=== PATIENT | female | born 1980 | race Caucasian/White ===

== ENCOUNTER 2021-10-18 17:35 | Inpatient (IN) | payer SELFPAY ==
[~2021-10-18] VITALS: Ht 161 cm; Wt 102.0 kg
[2021-10-18 17:41] VITALS: BP 255/183
[2021-10-18] MEDS ORDERED: cloNIDine 0.1 MG (CATAPRES) TAB ONE (17:50)
[2021-10-18] MEDS ORDERED: cloNIDine 0.2 MG (CATAPRES) TAB ONE (17:51)
[2021-10-18] MEDS ORDERED: cloNIDine 0.1 MG (CATAPRES) TAB PO ONE (18:00)
[2021-10-18] MEDS ORDERED: fentaNYL INJ 100 MCG/2 ML AMP IVP ONE (18:00)
[2021-10-18 18:06] LABS: BASOPHILS # (AUTO) 0.1 10^3/uL (0.0-0.1); BASOPHILS % (AUTO) 1 % (0-10); EOSINOPHILS # (AUTO) 0.2 10^3/uL (0.0-0.3); EOSINOPHILS % (AUTO) 1 % (0-10); HEMATOCRIT 43 % (35-52); HEMOGLOBIN 14.8 g/dL (11.5-16.0); LYMPHOCYTES # (AUTO) 2.5 10^3/uL (1.0-4.0); LYMPHOCYTES % (AUTO) 14 % (12-44); MEAN CORPUSCULAR HEMOGLOBIN 28 pg (25-34); MEAN CORPUSCULAR HGB CONC 34 g/dL (32-36); MEAN CORPUSCULAR VOLUME 83 fL (80-99); MEAN PLATELET VOLUME 9.6 fL (9.0-12.2); MONOCYTES # (AUTO) 0.9 10^3/uL (0.0-1.0); MONOCYTES % (AUTO) 5 % (0-12); NEUTROPHILS # (AUTO) 15.1 10^3/uL (1.8-7.8); NEUTROPHILS % (AUTO) 80 % (42-75); PLATELET COUNT 388 10^3/uL (130-400); WHITE BLOOD COUNT 18.9 10^3/uL (4.3-11.0)
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
[2021-10-18 18:19] LABS: POTASSIUM 2.6 MMOL/L (3.6-5.0)
[2021-10-18 18:20] LABS: CALCIUM 9.3 MG/DL (8.5-10.1)
[2021-10-18 18:21] LABS: EOSINOPHILS % (MANUAL) 3 %; INR 0.9 (0.8-1.4); LYMPHOCYTES % (MANUAL) 12 %; MONOCYTES % (MANUAL) 2 %; NEUTROPHILS % (MANUAL) 83 %; PROTHROMBIN TIME PATIENT 12.8 SEC (12.2-14.7); RBC MORPH NORMAL; TOTAL PROTEIN 8.7 GM/DL (6.4-8.2)
[2021-10-18 18:23] LABS: BILIRUBIN,TOTAL 0.3 MG/DL (0.1-1.0)
--- NOTE | 2021-10-18 18:23 | Diagnostic Imaging Report ---
INDICATION: Hypertension. COMPARISON: None. FINDINGS: Single view of the chest demonstrates slight cardiac enlargement. Lungs are clear. There is no pneumothorax. Osseous structures are normal. IMPRESSION: No acute cardiopulmonary findings. Dictated by: Dictated on workstation # [id number]
[2021-10-18 18:25] LABS: CREATININE SERUM 2.98 MG/DL (0.60-1.30)
[2021-10-18 18:27] LABS: MAGNESIUM 2.6 MG/DL (1.6-2.4)
[2021-10-18] MEDS ORDERED: NS IV 1000 ML 1,000 ML IV SCH (18:45)
[2021-10-18] MEDS ORDERED: KCL 10 MEQ TAB (MICRO K) PO ONE (18:45)
[2021-10-18] MEDS ORDERED: POTASSIUM CL 10MEQ/50ML IVPB 50 ML IV ONE (18:45)
--- NOTE | 2021-10-18 18:48 | Diagnostic Imaging Report ---
PROCEDURE: CT head without contrast. TECHNIQUE: Multiple contiguous axial images were obtained through the brain without the use of intravenous contrast. Auto Exposure Controls were utilized during the CT exam to meet ALARA standards for radiation dose reduction. INDICATION: Headache and high blood pressure. COMPARISON: No prior studies are available for comparison. FINDINGS: Ventricles and sulci are within normal limits. There are patchy areas of hypoattenuation in the periventricular white matter consistent with changes of chronic microvascular ischemia. 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 There is also probable old infarct in the right michel radiata. No sulcal effacement or midline shift is identified. No acute intra-axial or extra-axial hemorrhage is detected. Cisterns are patent. Visualized paranasal sinuses are clear. IMPRESSION: Chronic changes. No acute intracranial process is detected. Dictated by: Dictated on workstation # [id number]
[2021-10-18] MEDS: niCARdipine IV 50 MG in NS (IVPB) 230 ML IV SCH ×3 (19:01→23:20)
[2021-10-18] MEDS ORDERED: meTOprolol SUCCINATE 100 MG (TOPROL XL) TAB PO ONE (20:00)
[2021-10-18 21:06] LABS: BILIRUBIN,URINE NEGATIVE (NEGATIVE); CLARITY,URINE SL CLOUDY; COLOR,URINE YELLOW; GLUCOSE, URINE (UA) TRACE (NEGATIVE); KETONES,URINE NEGATIVE (NEGATIVE); LEUKOCYTE ESTERASE ,URINE NEGATIVE (NEGATIVE); NITRITE,URINE NEGATIVE (NEGATIVE); PROTEIN,URINE 3+ (NEGATIVE)
[2021-10-18 21:15] LABS: AMORPHOUS SEDIMENT,UR RARE AMOR URATES /LPF; BACTERIA,URINE MODERATE /HPF; RBC,URINE 0-2 /HPF
[2021-10-18 21:18] LABS: AMPHETAMINE SCREEN, URINE POSITIVE (NEGATIVE); BARBITURATE SCREEN URINE NEGATIVE (NEGATIVE); BENZODIAZEPINES SCREEN URINE NEGATIVE (NEGATIVE); CANNABINOID SCREEN, URINE NEGATIVE (NEGATIVE); COCAINE SCREEN URINE NEGATIVE (NEGATIVE); METHADONE STAT NEGATIVE (NEGATIVE); METHAMPHETAMINE SCREEN URINE S POSITIVE (NEGATIVE); OPIATE SCREEN URINE NEGATIVE (NEGATIVE); OXYCODONE STAT NEGATIVE (NEGATIVE); PROPOXYPHENE STAT NEGATIVE (NEGATIVE); TRICYCLIC ANTIDEPRESSANTS SCRE NEGATIVE (NEGATIVE)
--- NOTE | 2021-10-18 21:47 | Tele-ICU Consult ---
History of Present Illness History of Present Illness Date Seen by Provider: Oct 18, 2021 Time Seen by Provider: 19:42 Date of Admission This virtual visit was conducted using real time audio/video. Thank you for asking us to see this patient for hypertensive urgency w BP 22/153, headache and ur tox screen positive for amphetamines Recent events: ran out of clonidine 6 days ago. PMH: renal insuffic., htn SH: smoking history Y FH: Non-contributory. ROS: as in HPI PE: Obese. VSS except BP 201/99. HEENT: No obvious masses, adenopathy or JVD. Chest: clear to auscultation. CV: RRR S1 S2 No murmur or added sounds. Abd: Non-tender. Bowel sounds Y. : Unremarkable. Ardon N. IMPLEMENTATION SERVICES ANALYST/psychiatric: Grossly intact. No obvious focal findings. Extremities: No edema. Capillary refill < 3 seconds. Skin: unremarkable. Results: Elevated WCC 18.9, BUN 26, Creat 2.98, Lact 1.38, Trop 0.114, BG 157. Decreased . CXR: unremarkable. Available chart/ vitals / labs / images reviewed. Video assessment done using teleICU camera, rest of exam as per RN. A/P: Hyperetensive urgency. Critical Care: critically ill patient. Cont. Cardene. Give metoprolol and Clonidine. Discussed with RN Haydee. Asked RN to reach out to eICU if any questions or concerns later. Time spent with patient/coordination of care with other health professionals (mins): Allergies and Home Medications Allergies Coded Allergies: Sulfa (Sulfonamide Antibiotics) (Verified Allergy, Unknown, 10/18/21) ampicillin (Verified Allergy, Unknown, 10/18/21) latex (Verified Allergy, Unknown, 10/18/21) topiramate (Verified Allergy, Unknown, 10/18/21) Past Medical/Social/Family Hx Patient Social History Tobacco Use?: Yes Tobacco type used: Cigarettes Smoking Status: Current Everyday Smoker Use of E-Cig and/or Vaping dev: No Substance type: Methamphetamine, Marijuana past user Alcohol Use?: No Pt stated abuse/neglect: No Immunizations Up To Date Influenza Vaccine Up-to-Date: No; Not Current Tetanus Booster (TDap): Unknown Current Status Advance Directives: No Primary Language: [place] Preferred Spoken Language: [place] Review of Systems Constitutional: see HPI EENTM: see HPI Respiratory: see HPI Cardiovascular: see HPI Genitourinary: see HPI Musculoskeletal: see HPI Skin: see HPI Psychiatric/Neurological: See HPI (See free text) Focused Exam Lactate Level 10/18/21 19:05: Lactic Acid Level 1.38 Height, Weight, BMI Height: '" Weight: lbs. oz. kg; 36.00 BMI Method: Lactic Acid Level Laboratory Tests Test 10/18/21 19:05 Lactic Acid Level 1.38 MMOL/L (0.50-2.00) Exam Exam Patient acknowledged, consented, and participated in this virtual visit which was conducted using real time audio/video Vital Signs Date Time Temp Pulse Resp B/P (MAP) Pulse Ox O2 Delivery O2 Flow Rate FiO2 10/18/21 17:41 36.8 105 22 255/183 (207) 96 Room Air Height & Weight Height: '" Weight: lbs. oz. kg; 36.00 BMI Method: General Appearance: No Apparent Distress, WD/WN, Other (Alert and oriented GCS 15. She is hypertensive at 255/176.) HEENT: PERRL/EOMI, TMs Normal Neck: Full Range of Motion, Normal Inspection Respiratory: No Accessory Muscle Use, No Respiratory Distress Cardiovascular: Regular Rate, Rhythm, Normal Peripheral Pulses Capillary Refill: Less Than 3 Seconds Extremity: Normal Capillary Refill, Normal Inspection Neurologic/Psychiatric: Alert, Oriented x3 Skin: Normal Color, Warm/Dry Results Lab Laboratory Tests 10/18/21 17:56 Assessment/Plan Assessment/Plan See free text Critical Care: Critically Ill Patient LOIS MAYA MD Oct 18, 2021 21:46
[2021-10-18] MEDS ORDERED: dilTIAZem DRIP PRE-MIX 125 ML IV SCH (23:00)
[2021-10-18] MEDS: LACTATED RINGERS 1,000 ML IV SCH (23:18)
[2021-10-19] MEDS ORDERED: NS (IVPB) 250 ML ONE (02:08)
[2021-10-19] MEDS ORDERED: niCARdipine IV FOR DRIP 50 MG KIT ONE (02:08)
[2021-10-19] MEDS: niCARdipine IV 50 MG in NS (IVPB) 230 ML IV SCH ×2 (02:13→19:22)
[2021-10-19 05:31] LABS: BASOPHILS # (AUTO) 0.1 10^3/uL (0.0-0.1); BASOPHILS % (AUTO) 1 % (0-10); EOSINOPHILS # (AUTO) 0.4 10^3/uL (0.0-0.3); EOSINOPHILS % (AUTO) 3 % (0-10); HEMATOCRIT 36 % (35-52); LYMPHOCYTES # (AUTO) 3.6 10^3/uL (1.0-4.0); LYMPHOCYTES % (AUTO) 24 % (12-44); MEAN CORPUSCULAR HEMOGLOBIN 28 pg (25-34); MEAN CORPUSCULAR HGB CONC 34 g/dL (32-36); MEAN CORPUSCULAR VOLUME 85 fL (80-99); MEAN PLATELET VOLUME 9.8 fL (9.0-12.2); MONOCYTES % (AUTO) 7 % (0-12); NEUTROPHILS # (AUTO) 9.8 10^3/uL (1.8-7.8); NEUTROPHILS % (AUTO) 66 % (42-75); PLATELET COUNT 298 10^3/uL (130-400); WHITE BLOOD COUNT 14.9 10^3/uL (4.3-11.0)
[2021-10-19 05:50] LABS: ALBUMIN 3.2 GM/DL (3.2-4.5); POTASSIUM 2.6 MMOL/L (3.6-5.0)
[2021-10-19 05:51] LABS: CALCIUM 8.5 MG/DL (8.5-10.1)
[2021-10-19 05:53] LABS: TOTAL PROTEIN 6.6 GM/DL (6.4-8.2)
[2021-10-19 05:54] LABS: BILIRUBIN,TOTAL 0.2 MG/DL (0.1-1.0)
[2021-10-19 05:56] LABS: CREATININE SERUM 2.78 MG/DL (0.60-1.30); PHOSPHORUS 3.4 MG/DL (2.3-4.7)
[2021-10-19 05:59] LABS: MAGNESIUM 2.2 MG/DL (1.6-2.4)
[2021-10-19] MEDS: POTASSIUM CL 10MEQ/50ML IVPB 50 ML IV SCH ×5 (06:07→13:54)
[2021-10-19] MEDS: MAGNESIUM 1 GM/100 ML IVPB 100 ML IV SCH (06:07)
[2021-10-19] MEDS: KCL 20 MEQ TAB (K-DUR) PO SCH (06:08)
[2021-10-19] MEDS: cloNIDine 0.1 MG (CATAPRES) TAB PO SCH ×2 (08:23→21:06)
[2021-10-19] MEDS: LACTATED RINGERS 1,000 ML IV SCH ×2 (08:23→16:07)
[2021-10-19] MEDS: meTOprolol SUCCINATE 100 MG (TOPROL XL) TAB PO SCH (08:23)
--- NOTE | 2021-10-19 09:15 | Tele-ICU Progress Note ---
Subjective Date Seen by a Provider: Oct 19, 2021 Time Seen by a Provider: 09:14 Subjective/Events-last exam Patient admitted with hypertensive emergency and acute on chronic kidney failure. Her troponin is went up but she denies any chest pain or shortness of breath. She ran out of her metoprolol. Urine toxicology positive for methamphetamine and amphetamines. Her potassium is low. Video visit made and discussed with the patient and REAL ESTATE ADMINISTRATOR. Sepsis Event Evaluation Height, Weight, BMI Height: '" Weight: lbs. oz. kg; 36.03 BMI Method: Focused Exam Lactate Level 10/18/21 19:05: Lactic Acid Level 1.38 Exam Exam Patient acknowledged, consented, and participated in this virtual visit which was conducted using real time audio/video Vital Signs Date Time Temp Pulse Resp B/P (MAP) Pulse Ox O2 Delivery O2 Flow Rate FiO2 10/19/21 08:27 37.0 10/19/21 07:00 73 10/19/21 06:15 71 13 146/85 93 Room Air 10/19/21 05:00 73 147/83 88 Room Air 10/19/21 04:00 98 Room Air 10/19/21 04:00 76 171/100 93 Room Air 10/19/21 03:00 76 20 151/89 90 Room Air 10/19/21 02:56 36.5 10/19/21 02:02 81 164/110 Room Air 10/19/21 01:00 77 37 199/113 95 Room Air 10/19/21 01:00 77 10/19/21 00:00 84 21 178/95 93 Room Air 10/19/21 00:00 98 Room Air 10/18/21 23:00 80 211/103 92 Room Air 10/18/21 22:45 85 32 187/105 96 Room Air 10/18/21 22:30 82 10 180/99 95 Room Air 10/18/21 22:15 93 176/107 96 Room Air 10/18/21 22:00 98 197/115 97 Room Air 10/18/21 21:50 100 10/18/21 21:46 37.2 98 18 202/113 98 Room Air 10/18/21 21:45 98 Room Air 10/18/21 17:41 36.8 105 22 255/183 (207) 96 Room Air I & O 10/19/21 07:00 Intake Total 1550 ml Output Total 700 ml Balance 850 ml Height & Weight Height: '" Weight: lbs. oz. kg; 36.03 BMI Method: General Appearance: No Apparent Distress, WD/WN, Other (Alert and oriented GCS 15. She is hypertensive at 255/176.) HEENT: PERRL/EOMI, TMs Normal Neck: Full Range of Motion, Normal Inspection Respiratory: No Accessory Muscle Use, No Respiratory Distress Cardiovascular: Regular Rate, Rhythm, Normal Peripheral Pulses Capillary Refill: Less Than 3 Seconds Extremity: Normal Capillary Refill, Normal Inspection Neurologic/Psychiatric: Alert, Oriented x3 Skin: Normal Color, Warm/Dry Other comments PE PER RN Results Lab Laboratory Tests 10/18/21 17:56 10/19/21 05:20 Assessment/Plan Assessment/Plan 1. Accelerated hypertension secondary to noncompliance with medications 2. Acute on chronic kidney disease 3. Elevated troponin probably due to non-STEMI. 4. Amphetamine and methamphetamine abuse Recommendations 1. Continue antihypertensives per cardiology 2. Start Lovenox for DVT prophylaxis but any further needs for his non-STEMI to be addressed by the 3rd pressman. 3. We will give her potassium chloride rider 4. Monitor kidney function closely. Critical Care: Critically Ill Patient Time spent with patient (mins): 20 SYDNEY VALENTE MD Oct 19, 2021 09:15
[2021-10-19] MEDS: ENOXAPARIN 30 MG/0.3 ML (LOVENOX) SYR SC SCH (10:41)
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
--- NOTE | 2021-10-19 14:01 | Consultation-Cardiology ---
HPI-Cardiology Cardiology Consultation: Date of Consultation 10/19/21 Time Seen by a Provider: 09:30 Date of Admission Attending Physician Dave York MD Admitting Physician No,Local Physician Consulting Physician HUGH WESLEY MD, MA, FACP, FACC, FSCAI, CCDS HPI: Chief Complaint: Reason for Card consult: Malignant hypertension HPI 41 yo woman with a longstanding h/o hypertension who ran out of meds several days ago and presented to the ER last night with severe hypertension and headaches and malaise. Still has malaise and gen weakness. Denies focal weakness. Does not currently report cp. Has chronic exertional shortness of breath. Denies palp or syncope or swelling Review of Systems-Cardiology Review of Systems Constitutional: As described under HPI Eyes: No vision change Ears/Nose/Throat: No ear discharge, No nasal drainage, No recent hearing loss Respiratory: As described under HPI Cardiovascular: As described under HPI Gastrointestinal: No diarrhea; nausea; No vomiting Genitourinary: No dysuria, No hematuria, No urine frequency changes Musculoskeletal: No back pain, No joint pain Skin: No rash, No ulcerations Psychiatric/Neurological: No seizure, No focal weakness, No syncope VOK-[id number]-[id number] Hx Patient Social History Smoking Status: Current Everyday Smoker Have you traveled recently?: Yes Where was recent travel?: pt is from [place] Alcohol Use?: No Substance type: Methamphetamine, Marijuana Pt feels they are or have been: Yes Tobacco type used: Cigarettes Past Medical History PMH As described under Assessment. Family Medical History Family Medical History: Does not report fam h/o early CAD or SCD Allergies and Home Medications Allergies Coded Allergies: Sulfa (Sulfonamide Antibiotics) (Verified Allergy, Unknown, 10/18/21) ampicillin (Verified Allergy, Unknown, 10/18/21) latex (Verified Allergy, Unknown, 10/18/21) topiramate (Verified Allergy, Unknown, 10/18/21) Patient Home Medication List Home Medication List Reviewed: Yes Physical Exam-Cardiology Physical Exam Vital Signs/I&O 10/19/21 10/19/21 10/19/21 10/19/21 02:02 02:56 03:00 04:00 Temp 36.5 Pulse 81 76 76 Resp 20 B/P (MAP) 164/110 151/89 171/100 Pulse Ox 90 93 O2 Delivery Room Air Room Air Room Air 110/19/21 10/19/21 10/19/21 04:00 05:00 06:15 07:00 Pulse 73 71 73 Resp 13 B/P (MAP) 147/83 146/85 Pulse Ox 98 88 93 O2 Delivery Room Air Room Air Room Air 10/19/21 10/19/21 10/19/21 10/19/21 07:00 08:00 08:27 08:30 Temp 37.0 Pulse 72 73 Resp 14 B/P (MAP) 143/81 144/89 Pulse Ox 91 93 98 O2 Delivery Room Air Room Air Room Air 10/19/21 10/19/21 10/19/21 10/19/21 09:00 10:00 11:00 11:36 Pulse 72 57 61 Resp 16 13 12 B/P (MAP) 127/73 113/70 116/90 Pulse Ox 94 94 94 98 O2 Delivery Room Air Room Air Room Air Room Air 10/19/21 12:00 Pulse 64 Resp 18 B/P (MAP) 139/89 Pulse Ox 96 O2 Delivery Room Air 10/19/21 00:00 Intake Total 240 ml Output Total 100 ml Balance 140 ml Capillary Refill : Less Than 3 Seconds Constitutional: AAO x 3, well-developed, well-nourished HEENT: PERRL, EOMI, hearing is well preserved Neck: carotid pulses are 2 + bilaterally, with good upstrokes Respiratory: No accessory muscle use; other (fair to good, bilateral air entry) Cardiovascular: regular rate-rhythm, S1 and S2, systolic murmur (soft ALFREDO at card base) Gastrointestinal: No tender; soft; No guarding, No rebound; audible bowel sounds Extremities: No clubbing, No cyanosis, No significant edema Neurologic/Psychiatric: oriented x 3, other (moves all limbs equally) Skin: No rash on exposed areas, No ulcerations on exposed areas Data Review Labs Laboratory Tests 10/18/21 17:56: White Blood Count 18.9H, Red Blood Count 5.25H, Hemoglobin 14.8, Hematocrit 43, Mean Corpuscular Volume 83, Mean Corpuscular Hemoglobin 28, Mean Corpuscular Hemoglobin Concent 34, Red Cell Distribution Width 12.6, Platelet Count 388, Mean Platelet Volume 9.6, Immature Granulocyte % (Auto) 0, Neutrophils (%) (Auto) 80H, Lymphocytes (%) (Auto) 14, Monocytes (%) (Auto) 5, Eosinophils (%) (Auto) 1, Basophils (%) (Auto) 1, Neutrophils # (Auto) 15.1H, Lymphocytes # (Auto) 2.5, Monocytes # (Auto) 0.9, Eosinophils # (Auto) 0.2, Basophils # (Auto) 0.1, Immature Granulocyte # (Auto) 0.1, Neutrophils % (Manual) 83, Lymphocytes % (Manual) 12, Monocytes % (Manual) 2, Eosinophils % (Manual) 3, Blood Morphology Comment NORMAL, Prothrombin Time 12.8, INR Comment 0.9, Activated Partial Thromboplast Time 33, Sodium Level 138, Potassium Level 2.6L, Chloride Level 96L , Carbon Dioxide Level 22, Anion Gap 20H, Blood Urea Nitrogen 26H, Creatinine 2. 98H, Estimat Glomerular Filtration Rate 19, BUN/Creatinine Ratio 9, Glucose Level 157H, Calcium Level 9.3, Corrected Calcium 9.3, Magnesium Level 2.6H, Total Bilirubin 0.3, Aspartate Amino Transf (AST/SGOT) 12, Alanine Aminotransferase (ALT/SGPT) 10, Alkaline Phosphatase 156H, Myoglobin 82.7, Troponin I 0.114H, Total Protein 8.7H, Albumin 4.0, Serum Test, Qualitative NEGATIVE 10/18/21 17:57: Procalcitonin 0.16H 10/18/21 19:05: Lactic Acid Level 1.38 10/18/21 21:00: Urine Color YELLOW, Urine Clarity SL CLOUDY, Urine pH 6.0, Urine Specific [place] 1.025H, Urine Protein 3+H, Urine Glucose (UA) TRACEH, Urine Ketones NEGATIVE, Urine Nitrite NEGATIVE, Urine Bilirubin NEGATIVE, Urine Urobilinogen 0.2, Urine Leukocyte Esterase NEGATIVE, Urine RBC (Auto) TRACE-IH, Urine RBC 0- 2, Urine WBC 2-5, Urine Crystals PRESENTH, Urine Amorphous Sediment RARE JARED URATESH, Urine Bacteria MODERATEH, Urine Casts NONE, Urine Mucus NEGATIVE, Urine Culture Indicated YES, Urine Opiates Screen NEGATIVE, Urine Oxycodone Screen NEGATIVE, Urine Methadone Screen NEGATIVE, Urine Propoxyphene Screen NEGATIVE, Urine Barbiturates Screen NEGATIVE, Ur Tricyclic Antidepressants Screen NEGATIVE, Urine Phencyclidine Screen NEGATIVE, Urine Amphetamines Screen POSITIVEH, Urine Methamphetamines Screen POSITIVEH, Urine Benzodiazepines Screen NEGATIVE, Urine Cocaine Screen NEGATIVE, Urine Cannabinoids Screen NEGATIVE 10/19/21 05:20: White Blood Count 14.9H, Red Blood Count 4.22, Hemoglobin 12.0, Hematocrit 36, Mean Corpuscular Volume 85, Mean Corpuscular Hemoglobin 28, Mean Corpuscular Hemoglobin Concent 34, Red Cell Distribution Width 12.7, Platelet Count 298, Mean Platelet Volume 9.8, Immature Granulocyte % (Auto) 0, Neutrophils (%) (Auto) 66, Lymphocytes (%) (Auto) 24, Monocytes (%) (Auto) 7, Eosinophils (%) (Auto) 3, Basophils (%) (Auto) 1, Neutrophils # (Auto) 9.8H, Lymphocytes # (Auto) 3.6, Monocytes # (Auto) 1.0, Eosinophils # (Auto) 0.4H, Basophils # (Auto) 0.1, Immature Granulocyte # (Auto) 0.1, Sodium Level 137, Potassium Level 2.6L, Chloride Level 103, Carbon Dioxide Level 22, Anion Gap 12, Blood Urea Nitrogen 30H, Creatinine 2.78H, Estimat Glomerular Filtration Rate 21, BUN/Creatinine Ratio 11, Glucose Level 132H, Calcium Level 8.5, Corrected Calcium 9.1, Phosphorus Level 3.4, Magnesium Level 2.2, Total Bilirubin 0.2, Aspartate Amino Transf (AST/SGOT) 9, Alanine Aminotransferase (ALT/SGPT) 8, Alkaline Phosphatase 115, Troponin I 0.155H, Total Protein 6.6, Albumin 3.2, Triglycerides Level 270H, Cholesterol Level 154, LDL Cholesterol Direct 87, VLDL Cholesterol 54H, HDL Cholesterol 33L A/P-Cardiology Assessment/Admission Diagnosis Malignant hypertension with associated ac on chronic renal failure Mild troponin elevation due to uncontrolled hypertension Chronic tobacco use (smokes) Discussion and Recomendations * D/c iv nicardipine * Treat with beta-torrey and clonidine * Adjust meds as needed to control bp * Monitor labs * Advised to quit smoking immediately and completely Clinical Quality Measures AMI/AHF: ASA po Prior to arrival: HUGH Mendiola MD FACP [facility] CCDS Oct 19, 2021 14:01
[2021-10-19 14:34] LABS: POTASSIUM 3.4 MMOL/L (3.6-5.0)
[2021-10-19 14:35] LABS: CALCIUM 8.1 MG/DL (8.5-10.1)
[2021-10-19 14:39] LABS: CREATININE SERUM 2.65 MG/DL (0.60-1.30)
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
[2021-10-19] MEDS ORDERED: MTP100TCR PO (15:38)
[2021-10-19] MEDS ORDERED: MELATONIN 3 MG TABLET PO PRN (16:15)
[2021-10-19] MEDS ORDERED: polyethylene glycoL POWDER 17 GM (MIRALAX) PACK PO PRN (16:15)
[2021-10-19] MEDS ORDERED: ANTACID SUSP 30 ML UDC (MYLANTA) PO PRN (16:15)
[2021-10-19] MEDS ORDERED: ONDANSETRON 4 MG/2 ML (SDV) Z0FRAN IV PRN (16:15)
[2021-10-19] MEDS ORDERED: diphenhydrAMINE 25 MG TAB (BENADRYL) PO PRN (16:15)
[2021-10-19] MEDS ORDERED: ACETAMINOPHEN 325 MG TABLET PO PRN (16:15)
[2021-10-19] MEDS ORDERED: ONDANSETRON 4 MG (ZOFRAN) ORAL DISSOLVE TAB PO PRN (16:15)
[2021-10-19] MEDS: SENNOSIDES 8.6 MG (SENOKOT) TAB PO SCH (19:51)
[2021-10-19] MEDS: DOCUSATE SODIUM 100 MG (COLACE) CAP PO SCH (19:51)
[2021-10-20] MEDS: niCARdipine IV 50 MG in NS (IVPB) 230 ML IV SCH (04:22)
[2021-10-20 04:51] LABS: BASOPHILS # (AUTO) 0.1 10^3/uL (0.0-0.1); BASOPHILS % (AUTO) 1 % (0-10); EOSINOPHILS # (AUTO) 0.4 10^3/uL (0.0-0.3); EOSINOPHILS % (AUTO) 5 % (0-10); HEMATOCRIT 31 % (35-52); HEMOGLOBIN 10.3 g/dL (11.5-16.0); LYMPHOCYTES # (AUTO) 3.8 10^3/uL (1.0-4.0); LYMPHOCYTES % (AUTO) 43 % (12-44); MEAN CORPUSCULAR HEMOGLOBIN 29 pg (25-34); MEAN CORPUSCULAR HGB CONC 33 g/dL (32-36); MEAN CORPUSCULAR VOLUME 86 fL (80-99); MEAN PLATELET VOLUME 10.4 fL (9.0-12.2); MONOCYTES # (AUTO) 0.6 10^3/uL (0.0-1.0); MONOCYTES % (AUTO) 7 % (0-12); NEUTROPHILS # (AUTO) 3.9 10^3/uL (1.8-7.8); NEUTROPHILS % (AUTO) 44 % (42-75); PLATELET COUNT 183 10^3/uL (130-400); WHITE BLOOD COUNT 8.8 10^3/uL (4.3-11.0)
[2021-10-20 04:58] LABS: ALBUMIN 2.9 GM/DL (3.2-4.5); POTASSIUM 4.5 MMOL/L (3.6-5.0)
[2021-10-20 04:59] LABS: CALCIUM 8.7 MG/DL (8.5-10.1)
[2021-10-20 05:01] LABS: TOTAL PROTEIN 6.1 GM/DL (6.4-8.2)
[2021-10-20 05:02] LABS: BILIRUBIN,TOTAL 0.1 MG/DL (0.1-1.0)
[2021-10-20 05:04] LABS: CREATININE SERUM 3.12 MG/DL (0.60-1.30); PHOSPHORUS 4.4 MG/DL (2.3-4.7)
[2021-10-20 05:07] LABS: MAGNESIUM 2.5 MG/DL (1.6-2.4)
[2021-10-20] MEDS: KCL 20 MEQ TAB (K-DUR) PO SCH (05:41)
[2021-10-20] MEDS: MAGNESIUM 1 GM/100 ML IVPB 100 ML IV SCH (05:41)
[2021-10-20] MEDS: POTASSIUM CL 10MEQ/50ML IVPB 50 ML IV SCH (05:41)
[2021-10-20] MEDS: cloNIDine 0.1 MG (CATAPRES) TAB PO SCH ×2 (07:55→19:15)
[2021-10-20] MEDS: meTOprolol SUCCINATE 100 MG (TOPROL XL) TAB PO SCH (07:55)
[2021-10-20] MEDS: DOCUSATE SODIUM 100 MG (COLACE) CAP PO SCH ×2 (07:55→19:15)
[2021-10-20] MEDS: amLODIPine 10 MG (NORVASC) TAB PO SCH (07:55)
[2021-10-20] MEDS: SENNOSIDES 8.6 MG (SENOKOT) TAB PO SCH ×2 (07:56→19:15)
[2021-10-20] MEDS: ENOXAPARIN 30 MG/0.3 ML (LOVENOX) SYR SC SCH (07:56)
--- NOTE | 2021-10-20 08:27 | Progress Note - Cardiology ---
Cardiology SOAP Progress Note Subjective: Lying in bed, states she feels tired this morning No c/o CP or SOB or palpitations Objective: I&O/Vital Signs 10/21/21 10/21/21 10/21/21 10/21/21 00:09 01:00 04:15 05:33 Temp 36.3 36.7 Pulse 72 64 75 65 Resp 20 20 B/P (MAP) 168/96 187/104 157/92 Pulse Ox 97 96 O2 Delivery Room Air Room Air 10/21/21 10/21/21 10/21/21 07:00 07:56 08:00 Temp 36.0 Pulse 75 74 Resp 20 B/P (MAP) 186/98 Pulse Ox 95 O2 Delivery Room Air Room Air 10/21/21 00:00 Intake Total 1760 ml Output Total 200 ml Balance 1560 ml Constitutional: AAO x 3, well-developed, well-nourished Respiratory: No accessory muscle use; other (fair to good, bilateral air entry) Cardiovascular: regular rate-rhythm, S1 and S2, systolic murmur (soft ALFREDO at card base) Gastrointestional: No tender; soft; No guarding, No rebound; audible bowel sounds Extremities: No clubbing, No cyanosis, No significant edema Neurologic/Psychiatric: oriented x 3, other (moves all limbs equally) Skin: No rash on exposed areas, No ulcerations on exposed areas Results/Procedures: Labs Laboratory Tests 10/21/21 04:40: White Blood Count 11.5H, Red Blood Count 3.45L, Hemoglobin 9.7L, Hematocrit 30L, Mean Corpuscular Volume 87, Mean Corpuscular Hemoglobin 28, Mean Corpuscular Hemoglobin Concent 32, Red Cell Distribution Width 13.1, Platelet Count 270, Mean Platelet Volume 10.8, Immature Granulocyte % (Auto) 1, Neutrophils (%) (Auto) 56, Lymphocytes (%) (Auto) 32, Monocytes (%) (Auto) 6, Eosinophils (%) (Auto) 5, Basophils (%) (Auto) 1, Neutrophils # (Auto) 6.5, Lymphocytes # (Auto) 3.6, Monocytes # (Auto) 0.7, Eosinophils # (Auto) 0.6H, Basophils # (Auto) 0.1, Immature Granulocyte # (Auto) 0.1, Percent Immature Platelet Fraction 3.4, Sodium Level 139, Potassium Level 3.7, Chloride Level 107, Carbon Dioxide Level 21, Anion Gap 11, Blood Urea Nitrogen 49H, Creatinine 2.68#H, Estimat Glomerular Filtration Rate 22, BUN/Creatinine Ratio 18, Glucose Level 104, Calcium Level 7.9L, Corrected Calcium 8.9, Phosphorus Level 3.7, Magnesium Level 2.1, Total Bilirubin < 0.1L, Aspartate Amino Transf (AST/SGOT) 8, Alanine Aminotransferase (ALT/SGPT) 8, Alkaline Phosphatase 79, Total Protein 5.7L, Albumin 2.7L Microbiology 10/18/21 MRSA Screen - Final, Complete MRSA not isolated 10/18/21 Urine Culture - Final, Complete 3 or more isolates 10/18/21 Blood Culture - Preliminary, Resulted No growth A/P: Assessment: Malignant hypertension with associated ac on chronic renal failure - worsening Cr this morning Mild troponin elevation due to uncontrolled hypertension Chronic tobacco use (smokes) Plan: * Treat with beta-torrey and clonidine * Adjust meds as needed to control bp * Not a suitable candidate for MACARIO or ARB d/t renal function * Start Hydralazine for BP control * Worsening renal function - consider transfer to a tertiary care facility with nephrology services * Monitor labs * Advised to quit smoking immediately and completely Clinical Quality Measures AMI/AHF: ASA po Prior to arrival: LUIS DANIEL Quiroga Oct 20, 2021 08:27
[2021-10-20] MEDS ORDERED: hydrALAZINE (APRESOLINE) 25 MG TAB PO ONE (08:30)
--- NOTE | 2021-10-20 09:41 | Tele-ICU Progress Note ---
Subjective Date Seen by a Provider: Oct 20, 2021 Time Seen by a Provider: 09:41 Subjective/Events-last exam bp was high but started on novasc and clonidine, now bp improving. c/o nausea. video visit made and d/w patient.no cp Review of Systems ROS PER RN Sepsis Event Evaluation Height, Weight, BMI Height: '" Weight: lbs. oz. kg; 36.03 BMI Method: Focused Exam Lactate Level 10/18/21 19:05: Lactic Acid Level 1.38 Exam Exam Patient acknowledged, consented, and participated in this virtual visit which was conducted using real time audio/video Vital Signs Date Time Temp Pulse Resp B/P (MAP) Pulse Ox O2 Delivery O2 Flow Rate FiO2 10/20/21 08:49 96 Room Air 10/20/21 07:52 36.5 10/20/21 06:00 66 15 150/95 94 Room Air 10/20/21 05:00 62 17 164/95 95 Room Air 10/20/21 04:20 36.6 Room Air 10/20/21 04:20 95 Room Air 10/20/21 04:00 64 22 127/73 94 Room Air 10/20/21 03:00 65 15 140/84 94 Room Air 10/20/21 02:00 64 25 138/85 95 Room Air 10/20/21 01:00 63 16 144/87 93 Room Air 10/20/21 01:00 63 10/20/21 00:10 158/105 10/20/21 00:00 96 Room Air 10/20/21 00:00 65 15 158/105 95 Room Air 10/20/21 00:00 36.5 67 16 176/114 96 Room Air 10/19/21 23:00 73 17 146/84 84 Room Air 10/19/21 22:00 72 16 157/96 97 Room Air 10/19/21 21:00 73 22 167/91 96 Room Air 10/19/21 20:00 70 20 142/89 96 Room Air 10/19/21 19:49 36.7 10/19/21 19:45 70 20 158/92 94 Room Air 10/19/21 19:45 94 Room Air 10/19/21 19:00 60 16 152/93 91 Room Air 10/19/21 19:00 60 10/19/21 18:00 71 20 140/91 96 Room Air 10/19/21 17:00 70 24 149/102 97 Room Air 10/19/21 16:45 95 Room Air 10/19/21 16:00 68 19 176/123 98 Room Air 10/19/21 16:00 37.0 10/19/21 15:00 61 13 146/96 98 Room Air 10/19/21 14:00 61 17 132/79 95 Room Air 10/19/21 13:00 61 10/19/21 13:00 61 18 149/86 94 Room Air 10/19/21 12:00 64 18 139/89 96 Room Air 10/19/21 11:36 98 Room Air 10/19/21 11:00 61 12 116/90 94 Room Air 10/19/21 10:00 57 13 113/70 94 Room Air I & O 10/20/21 07:00 Intake Total 4500 ml Output Total 1600 ml Balance 2900 ml Height & Weight Height: '" Weight: lbs. oz. kg; 36.03 BMI Method: General Appearance: No Apparent Distress, Obese HEENT: PERRL/EOMI, Pharynx Normal Neck: Normal Inspection, Supple Respiratory: Lungs Clear, Normal Breath Sounds, No Respiratory Distress Cardiovascular: Regular Rate, Rhythm, No Murmur Capillary Refill: Less Than 3 Seconds Extremity: Normal Inspection, Non Tender, Pedal Edema Neurologic/Psychiatric: Alert, No Motor/Sensory Deficits Skin: Normal Color, Warm/Dry Other comments PE PER RN Results Lab Laboratory Tests 10/18/21 17:56 10/19/21 05:20 10/19/21 14:18 10/20/21 04:35 Assessment/Plan Assessment/Plan 1. Accelerated hypertension secondary to noncompliance with medications 2. Acute on chronic kidney disease 3. Elevated troponin probably due to non-STEMI. 4. Amphetamine and methamphetamine abuse Recommendations 1. Continue antihypertensives per cardiology 2.continue Lovenox for DVT prophylaxis but any further needs for his non-STEMI to be addressed by the computer systems designer. 3.. Monitor kidney function closely. Critical Care: Critically Ill Patient Time spent with patient (mins): 20 SYDNEY VALENTE MD Oct 20, 2021 09:41
[2021-10-20] MEDS: LACTATED RINGERS 1,000 ML IV SCH ×3 (09:54→21:57)
--- NOTE | 2021-10-20 11:03 | Progress Note - Cardiology ---
Cardiology SOAP Progress Note Subjective: Gen malaise and weakness present No cp or palp or syncope or shortness of breath at rest Abd discomfort that she was experiencing yesterday has improved No n/v/d Objective: I&O/Vital Signs 10/20/21 10/20/21 10/20/21 10/20/21 00:00 00:00 00:00 00:10 Temp 36.5 Pulse 67 65 Resp 16 15 B/P (MAP) 176/114 158/105 158/105 Pulse Ox 96 95 96 O2 Delivery Room Air Room Air Room Air 10/20/21 10/20/21 10/20/21 10/20/21 01:00 01:00 02:00 03:00 Pulse 63 63 64 65 Resp 16 25 15 B/P (MAP) 144/87 138/85 140/84 Pulse Ox 93 95 94 O2 Delivery Room Air Room Air Room Air 10/20/21 10/20/21 10/20/21 10/20/21 04:00 04:20 04:20 05:00 Temp 36.6 Pulse 64 62 Resp 22 17 B/P (MAP) 127/73 164/95 Pulse Ox 94 95 95 O2 Delivery Room Air Room Air Room Air Room Air 10/20/21 10/20/21 10/20/21 10/20/21 06:00 07:00 07:00 07:52 Temp 36.5 Pulse 66 64 64 Resp 15 14 B/P (MAP) 150/95 200/125 Pulse Ox 94 97 O2 Delivery Room Air Room Air 10/20/21 10/20/21 10/20/21 10/20/21 08:00 08:49 09:00 10:00 Pulse 70 61 61 Resp 16 19 B/P (MAP) 153/90 119/76 Pulse Ox 97 96 95 96 O2 Delivery Room Air Room Air Room Air Room Air 10/20/21 00:00 Intake Total 3720 ml Output Total 650 ml Balance 3070 ml Constitutional: AAO x 3, well-developed, well-nourished Respiratory: No accessory muscle use; other (fair to good, bilateral air entry) Cardiovascular: regular rate-rhythm, S1 and S2, systolic murmur (soft ALFREDO at card base) Gastrointestional: No tender; soft; No guarding, No rebound; audible bowel sounds Extremities: No clubbing, No cyanosis, No significant edema Neurologic/Psychiatric: oriented x 3, other (moves all limbs equally) Skin: No rash on exposed areas, No ulcerations on exposed areas Results/Procedures: Labs Laboratory Tests 10/19/21 14:18: Sodium Level 140, Potassium Level 3.4L, Chloride Level 104, Carbon Dioxide Level 22, Anion Gap 14, Blood Urea Nitrogen 31H, Creatinine 2.65H, Estimat Glomerular Filtration Rate 22, BUN/Creatinine Ratio 12, Glucose Level 136H, Calcium Level 8.1L 10/20/21 04:35: Sodium Level 141, Potassium Level 4.5, Chloride Level 109H, Carbon Dioxide Level 18L, Anion Gap 14, Blood Urea Nitrogen 44H, Creatinine 3.12#H, Estimat Glomerular Filtration Rate 18, BUN/Creatinine Ratio 14, Glucose Level 161H, Calcium Level 8.7, White Blood Count 8.8, Red Blood Count 3.60L, Hemoglobin 10.3L, Hematocrit 31L, Mean Corpuscular Volume 86, Mean Corpuscular Hemoglobin 29, Mean Corpuscular Hemoglobin Concent 33, Red Cell Distribution Width 12.9, Platelet Count 183, Mean Platelet Volume 10.4, Immature Granulocyte % (Auto) 1, Neutrophils (%) (Auto) 44, Lymphocytes (%) (Auto) 43, Monocytes (%) (Auto) 7, Eosinophils (%) (Auto) 5, Basophils (%) (Auto) 1, Neutrophils # (Auto) 3.9, Lymphocytes # (Auto) 3.8, Monocytes # (Auto) 0.6, Eosinophils # (Auto) 0.4H, Basophils # (Auto) 0.1, Immature Granulocyte # (Auto) 0.1, Corrected Calcium 9.6, Phosphorus Level 4.4, Magnesium Level 2.5H, Total Bilirubin 0.1, Aspartate Amino Transf (AST/SGOT) 12, Alanine Aminotransferase (ALT/SGPT) 7, Alkaline Phosphatase 94, Total Protein 6.1L, Albumin 2.9L 10/20/21 10:00: Microbiology 10/18/21 MRSA Screen - Final, Complete MRSA not isolated 10/18/21 Urine Culture - Preliminary, Resulted 10/18/21 Blood Culture - Preliminary, Resulted No growth A/P: Assessment: Malignant hypertension with associated ac on chronic renal failure - worsening Cr this morning Mild troponin elevation due to uncontrolled hypertension Chronic tobacco use (smokes) Plan: * Treat with beta-torrey and clonidine * Adjust meds as needed to control bp * Not a suitable candidate for MACARIO or ARB d/t renal function * Start Hydralazine for BP control * Worsening renal function - consider transfer to a tertiary care facility with nephrology services * Monitor labs * Advised to quit smoking immediately and completely Clinical Quality Measures AMI/AHF: ASA po Prior to arrival: HUGH Mendiola MD FACP FAC CCDS Oct 20, 2021 11:03
--- NOTE | 2021-10-20 12:23 | Progress Note - Hospitalist ---
ROSE MARYCYRUS A MED STUDENT 10/20/21 1223: Subjective HPI/CC On Admission Date Seen by Provider: Oct 20, 2021 Time Seen by Provider: 08:15 HTN emergency Subjective/Events-last exam Pt is up in bed this morning. States she is nauseous, dizzy and has a headache that she rates as a 5/10. Pt reports having a BM yesterday that was solid. Denies fever, chills, SOA, cough, chest pain, palpitations, vomiting, diarrhea, or constipation. Review of Systems General: No Chills; Fatigue HEENT: Head Aches; No Visual Changes Pulmonary: No Dyspnea, No Cough Cardiovascular: No: Chest Pain, Palpitations Gastrointestinal: Nausea, Abdominal Pain; No: Vomiting, Diarrhea, Constipation Genitourinary: No Dysuria; Frequency Neurological: No: Weakness, Numbness Focused Exam Lactate Level 10/18/21 19:05: Lactic Acid Level 1.38 Objective Exam Vital Signs Vital Signs Date Time Temp Pulse Resp B/P (MAP) Pulse Ox O2 Delivery O2 Flow Rate FiO2 10/20/21 12:06 94 Room Air 10/20/21 10:00 61 19 10/20/21 07:52 36.5 Capillary Refill : Less Than 3 Seconds General Appearance: No Apparent Distress, WD/WN HEENT: PERRL/EOMI Respiratory: Chest Non Tender, No Respiratory Distress, Rales Cardiovascular: Regular Rate, Rhythm, No Murmur Gastrointestinal: Normal Bowel Sounds, Soft, Tenderness (Left side of abdomen) Extremity: Normal Capillary Refill, Non Tender, No Pedal Edema Neurologic/Psychiatric: Alert, Oriented x3 Skin: Normal Color, Warm/Dry Results/Procedures Lab Laboratory Tests 10/19/21 14:18 10/20/21 04:35 Patient resulted labs reviewed. Imaging: Reviewed Imaging Report Assessment/Plan Assessment and Plan Assess & Plan/Chief Complaint HTN emergency Acute Kidney injury superimposed on chronic renal insufficiency Hypokalemia Elevated troponin Constipation/Nausea Urinary Frequency Meth use HTN emergency -BP Stable -Cardene drip stopped -Continue metoprolol and clonidine -Added amlodipine Acute kidney injury superimposed on chronic renal insufficiency -Unsure of baseline BUN/Cr -Creatinine slightly worsened -BUN slightly improved today -Start IV fluids -F/u with nephrology upon d/c Hypokalemia -Potassium improved -D/c potassium protocol -D/c magnesium Elevated troponin -Cardiology consulted, appreciate their recommendations -Two elevated troponin values since admission -Troponin pending -Consider echo Constipation/Nausea -Continue stool softener and zofran Urinary frequency -UA showed moderate bacteria, but no WBCs -Unlikely to be UTI, but culture pending Methamphetamine Use -Encouraged abstinence Will move pt out of ICU to the general medical floor. Clinical Quality Measures AMI/AHF: ASA po Prior to arrival: No GLENROY MONSIVAIS MD 10/20/21 1722: Subjective HPI/CC On Admission Time Seen by Provider: 09:40 Assessment/Plan Assessment and Plan Assess & Plan/Chief Complaint BP improved. Off IV Cardene. Adding Amlodipine. Cardiology following. Transfer to medical floor. Diagnosis/Problems Diagnosis/Problems (1) Hypertensive emergency Status: Acute (2) Elevated troponin Status: Acute (3) Methamphetamine abuse Status: Acute (4) CKD stage 4 secondary to hypertension Status: Acute Supervisory-Addendum Brief Verification & Attestation Participated in pt care: history, MDM, physical Personally performed: exam, history, MDM, supervision of care Care discussed with: Medical Student Procedures: n/a Results interpretation: Verified all documentation A medical student performed and documented this service in my presence. I reviewed and verified all information documented by the medical student and made modifications to such information, when appropriate. I personally performed the physical exam and medical decision making. CYRUS BAZZI A MED STUDENT Oct 20, 2021 12:23 GLENROY MONSIVAIS MD Oct 20, 2021 17:22
[2021-10-20] MEDS: hydrALAZINE (APRESOLINE) 25 MG TAB PO SCH ×2 (13:43→21:56)
[2021-10-20] MEDS: DIAZEPAM 5 MG (VALIUM) TABLET PO PRN (21:56)
[2021-10-21] MEDS: hydrALAZINE (APRESOLINE) 25 MG TAB PO SCH (04:17)
[2021-10-21] MEDS: DIAZEPAM 5 MG (VALIUM) TABLET PO PRN (05:06)
[2021-10-21 05:44] LABS: BASOPHILS # (AUTO) 0.1 10^3/uL (0.0-0.1); BASOPHILS % (AUTO) 1 % (0-10); EOSINOPHILS # (AUTO) 0.6 10^3/uL (0.0-0.3); EOSINOPHILS % (AUTO) 5 % (0-10); HEMATOCRIT 30 % (35-52); HEMOGLOBIN 9.7 g/dL (11.5-16.0); LYMPHOCYTES # (AUTO) 3.6 10^3/uL (1.0-4.0); LYMPHOCYTES % (AUTO) 32 % (12-44); MEAN CORPUSCULAR HEMOGLOBIN 28 pg (25-34); MEAN CORPUSCULAR HGB CONC 32 g/dL (32-36); MEAN CORPUSCULAR VOLUME 87 fL (80-99); MEAN PLATELET VOLUME 10.8 fL (9.0-12.2); MONOCYTES # (AUTO) 0.7 10^3/uL (0.0-1.0); MONOCYTES % (AUTO) 6 % (0-12); NEUTROPHILS # (AUTO) 6.5 10^3/uL (1.8-7.8); NEUTROPHILS % (AUTO) 56 % (42-75); PLATELET COUNT 270 10^3/uL (130-400); WHITE BLOOD COUNT 11.5 10^3/uL (4.3-11.0)
[2021-10-21 05:58] LABS: ALBUMIN 2.7 GM/DL (3.2-4.5); CHLORIDE 107 MMOL/L (98-107); POTASSIUM 3.7 MMOL/L (3.6-5.0); SODIUM 139 MMOL/L (135-145)
[2021-10-21 05:59] LABS: CALCIUM 7.9 MG/DL (8.5-10.1)
[2021-10-21 06:01] LABS: GLUCOSE 104 MG/DL (70-105); TOTAL PROTEIN 5.7 GM/DL (6.4-8.2)
[2021-10-21 06:02] LABS: CARBON DIOXIDE 21 MMOL/L (21-32)
[2021-10-21 06:03] LABS: BILIRUBIN,TOTAL < 0.1 MG/DL (0.1-1.0)
[2021-10-21 06:04] LABS: ALKALINE PHOSPHATASE 79 U/L (40-136); PHOSPHORUS 3.7 MG/DL (2.3-4.7)
[2021-10-21 06:05] LABS: CREATININE SERUM 2.68 MG/DL (0.60-1.30); GFR ESTIMATED 22
[2021-10-21 06:06] LABS: BUN/CREATININE RATIO 18
[2021-10-21 06:07] LABS: MAGNESIUM 2.1 MG/DL (1.6-2.4)
[2021-10-21 06:08] LABS: ALANINE AMINOTRANSFERASE 8 U/L (0-55)
[2021-10-21] MEDS: cloNIDine 0.1 MG (CATAPRES) TAB PO SCH (08:03)
[2021-10-21] MEDS: DOCUSATE SODIUM 100 MG (COLACE) CAP PO SCH (08:04)
[2021-10-21] MEDS: ENOXAPARIN 30 MG/0.3 ML (LOVENOX) SYR SC SCH (08:04)
[2021-10-21] MEDS: meTOprolol SUCCINATE 100 MG (TOPROL XL) TAB PO SCH (08:04)
[2021-10-21] MEDS: SENNOSIDES 8.6 MG (SENOKOT) TAB PO SCH (08:04)
[2021-10-21] MEDS: amLODIPine 10 MG (NORVASC) TAB PO SCH (08:04)
[2021-10-21] MEDS ORDERED: hydrALAZINE (APRESOLINE) 25 MG TAB PO ONE (09:00)
--- NOTE | 2021-10-21 09:06 | Progress Note - Cardiology ---
Cardiology SOAP Progress Note Subjective: Lying in bed No c/o CP, palpitations or SOB Objective: I&O/Vital Signs 10/21/21 10/21/21 10/21/21 10/21/21 00:09 01:00 04:15 05:33 Temp 36.3 36.7 Pulse 72 64 75 65 Resp 20 20 B/P (MAP) 168/96 187/104 157/92 Pulse Ox 97 96 O2 Delivery Room Air Room Air 10/21/21 10/21/21 10/21/21 07:00 07:56 08:00 Temp 36.0 Pulse 75 74 Resp 20 B/P (MAP) 186/98 Pulse Ox 95 O2 Delivery Room Air Room Air 10/21/21 00:00 Intake Total 1760 ml Output Total 200 ml Balance 1560 ml Constitutional: AAO x 3, well-developed, well-nourished Respiratory: No accessory muscle use; other (fair to good, bilateral air entry) Cardiovascular: regular rate-rhythm, S1 and S2, systolic murmur (soft ALFREDO at card base) Gastrointestional: No tender; soft; No guarding, No rebound; audible bowel sounds Extremities: No clubbing, No cyanosis, No significant edema Neurologic/Psychiatric: oriented x 3, other (moves all limbs equally) Skin: No rash on exposed areas, No ulcerations on exposed areas Results/Procedures: Labs Laboratory Tests 10/21/21 04:40: White Blood Count 11.5H, Red Blood Count 3.45L, Hemoglobin 9.7L, Hematocrit 30L, Mean Corpuscular Volume 87, Mean Corpuscular Hemoglobin 28, Mean Corpuscular Hemoglobin Concent 32, Red Cell Distribution Width 13.1, Platelet Count 270, Mean Platelet Volume 10.8, Immature Granulocyte % (Auto) 1, Neutrophils (%) (Auto) 56, Lymphocytes (%) (Auto) 32, Monocytes (%) (Auto) 6, Eosinophils (%) (Auto) 5, Basophils (%) (Auto) 1, Neutrophils # (Auto) 6.5, Lymphocytes # (Auto) 3.6, Monocytes # (Auto) 0.7, Eosinophils # (Auto) 0.6H, Basophils # (Auto) 0.1, Immature Granulocyte # (Auto) 0.1, Percent Immature Platelet Fraction 3.4, Sodium Level 139, Potassium Level 3.7, Chloride Level 107, Carbon Dioxide Level 21, Anion Gap 11, Blood Urea Nitrogen 49H, Creatinine 2.68#H, Estimat Glomerular Filtration Rate 22, BUN/Creatinine Ratio 18, Glucose Level 104, Calcium Level 7.9L, Corrected Calcium 8.9, Phosphorus Level 3.7, Magnesium Level 2.1, Total Bilirubin < 0.1L, Aspartate Amino Transf (AST/SGOT) 8, Alanine Aminotransferase (ALT/SGPT) 8, Alkaline Phosphatase 79, Total Protein 5.7L, Albumin 2.7L Microbiology 10/18/21 MRSA Screen - Final, Complete MRSA not isolated 10/18/21 Urine Culture - Final, Complete 3 or more isolates 10/18/21 Blood Culture - Preliminary, Resulted No growth A/P: Assessment: Malignant hypertension with associated ac on chronic renal failure - worsening Cr this morning Mild troponin elevation due to uncontrolled hypertension Chronic tobacco use (smokes) Plan: * Treat with beta-torrey and clonidine * Adjust meds as needed to control bp * Not a suitable candidate for MACARIO or ARB d/t renal function * Start Hydralazine for BP control * Worsening renal function - consider transfer to a tertiary care facility with nephrology services * Monitor labs * Advised to quit smoking immediately and completely Clinical Quality Measures AMI/AHF: ASA po Prior to arrival: LUIS DANIEL Quiroga Oct 21, 2021 09:06
[2021-10-21] MEDS ORDERED: AMLO-251 PO (11:21)
[2021-10-21] MEDS ORDERED: CLON0.3T PO (11:21)
[2021-10-21] MEDS ORDERED: MTP100TCR PO (11:21)
[2021-10-21] MEDS ORDERED: HYDR-3924 PO (11:21)
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
--- NOTE | 2021-10-21 12:22 | Progress Note - Cardiology ---
Cardiology SOAP Progress Note Subjective: Gen weakness and malaise No cp or palp or syncope or shortness of breath at rest No n/v/d Objective: I&O/Vital Signs 10/21/21 10/21/21 10/21/21 10/21/21 01:00 04:15 05:33 07:00 Temp 36.7 Pulse 64 75 65 75 Resp 20 B/P (MAP) 187/104 157/92 Pulse Ox 96 O2 Delivery Room Air 10/21/21 10/21/21 07:56 08:00 Temp 36.0 Pulse 74 Resp 20 B/P (MAP) 186/98 Pulse Ox 95 O2 Delivery Room Air Room Air 10/21/21 00:00 Intake Total 1760 ml Output Total 200 ml Balance 1560 ml Constitutional: AAO x 3, well-developed, well-nourished Respiratory: No accessory muscle use; other (fair to good, bilateral air entry) Cardiovascular: regular rate-rhythm, S1 and S2, systolic murmur (soft ALFREDO at card base) Gastrointestional: No tender; soft; No guarding, No rebound; audible bowel sounds Extremities: No clubbing, No cyanosis, No significant edema Neurologic/Psychiatric: oriented x 3, other (moves all limbs equally) Skin: No rash on exposed areas, No ulcerations on exposed areas Results/Procedures: Labs Laboratory Tests 10/21/21 04:40: White Blood Count 11.5H, Red Blood Count 3.45L, Hemoglobin 9.7L, Hematocrit 30L, Mean Corpuscular Volume 87, Mean Corpuscular Hemoglobin 28, Mean Corpuscular Hemoglobin Concent 32, Red Cell Distribution Width 13.1, Platelet Count 270, Mean Platelet Volume 10.8, Immature Granulocyte % (Auto) 1, Neutrophils (%) (Auto) 56, Lymphocytes (%) (Auto) 32, Monocytes (%) (Auto) 6, Eosinophils (%) (Auto) 5, Basophils (%) (Auto) 1, Neutrophils # (Auto) 6.5, Lymphocytes # (Auto) 3.6, Monocytes # (Auto) 0.7, Eosinophils # (Auto) 0.6H, Basophils # (Auto) 0.1, Immature Granulocyte # (Auto) 0.1, Percent Immature Platelet Fraction 3.4, Sodium Level 139, Potassium Level 3.7, Chloride Level 107, Carbon Dioxide Level 21, Anion Gap 11, Blood Urea Nitrogen 49H, Creatinine 2.68#H, Estimat Glomerular Filtration Rate 22, BUN/Creatinine Ratio 18, Glucose Level 104, Calcium Level 7.9L, Corrected Calcium 8.9, Phosphorus Level 3.7, Magnesium Level 2.1, Total Bilirubin < 0.1L, Aspartate Amino Transf (AST/SGOT) 8, Alanine Aminotransferase (ALT/SGPT) 8, Alkaline Phosphatase 79, Total Protein 5.7L, Albumin 2.7L Microbiology 10/18/21 MRSA Screen - Final, Complete MRSA not isolated 10/18/21 Urine Culture - Final, Complete 3 or more isolates 10/18/21 Blood Culture - Preliminary, Resulted No growth Laboratory Tests 10/19/21 14:18 10/20/21 04:35 10/21/21 04:40 A/P: Assessment: Malignant hypertension with associated ac on chronic renal failure, stable Mild troponin elevation due to uncontrolled hypertension Chronic tobacco use (smokes) Plan: * Treat with beta-torrey and clonidine * Adjust meds as needed to control bp * Not a suitable candidate for MACARIO or ARB d/t renal function * Increase hydralazine for BP control * Consider transfer to a tertiary care facility with nephrology services if renal function worsens * Monitor labs * Advised to quit smoking immediately and completely * Outpt cardiac f/u advised Clinical Quality Measures AMI/AHF: ASA po Prior to arrival: HUGH Mendiola MD FACP [facility] CCDS Oct 21, 2021 12:22
[2021-10-21] MEDS ORDERED: hydrALAZINE (APRESOLINE) 25 MG TAB PO SCH (14:00)
== END 2021-10-21 13:30 | disposition home or self-care (01) | DRG 305 ==
LOC: ER 17:38 → ICU 19:42 → 4TH 10-20 17:12
PROVIDERS: ADMIT Internal Medicine; ATTEND Internal Medicine
DX: I16.1 Hypertensive emergency (principal); I24.8 Other forms of acute ischemic heart disease; N18.4 Chronic kidney disease, stage 4 (severe); N17.9 Acute kidney failure, unspecified; I12.9 Hypertensive chronic kidney disease with stage 1 through stage 4 chronic kidney disease, or unspecified chronic kidney disease; F15.10 Other stimulant abuse, uncomplicated; F17.210 Nicotine dependence, cigarettes, uncomplicated; E87.6 Hypokalemia; K59.00 Constipation, unspecified; R11.0 Nausea; R35.0 Frequency of micturition; Z91.14 Patient's other noncompliance with medication regimen; Z88.2 Allergy status to sulfonamides; Z88.1 Allergy status to other antibiotic agents; Z91.040 Latex allergy status
CPT/HCPCS: 36415; 70450; 71045; 80048; 80053; 80061; 80306; 81000; 83605; 83735; 83874; 84100; 84145; 84155; 84165; 84484; 84703; 85007; 85025; 85027; 85610; 85730; 87040; 87081; 87088; 93041

== ENCOUNTER 2023-08-27 08:12 | Emergency (ER) | payer MEDICAID ==
[~2023-08-27] VITALS: Ht 167 cm; Wt 105.0 kg
[~2023-08-27 08:12] MED LIST: AMLO-251 PO; CLON0.3T PO; HYDR-3924 PO; MTP100TCR PO
--- NOTE | 2023-08-27 08:25 | ED Abdominal Pain ---
General Chief Complaint: Abdominal/GI Problems Stated Complaint: ABD PAIN | SOB Nursing Triage Note: PT ARRIVED PER EMS, PT CO OF SOA AND ABD PAIN. PT WAS AT DIALYSIS AND ONLY RECEIVED 15 TODAY. PT HAS RECENTLY GOTTEN OUT OF HOSP IN [place] Source of Information: Patient, EMS Exam Limitations: No Limitations History of Present Illness Date Seen by Provider: Aug 27, 2023 Time Seen by Provider: 08:12 Initial Comments 43-year-old female with end-stage renal disease on hemodialysis presents from dialysis center for shortness of breath as well as abdominal pain. She tells me that on Sunday she was admitted to [facility] with respiratory failure. It sounds like she was on BiPAP for 2 days and ultimately weaned off of oxygen altogether and discharged on Sunday. She states she was feeling pretty well until 2 or 3 days ago when she developed diffuse abdominal pain which she describes as dull throbbing without radiation. No obvious aggravating or alleviating factors. No nausea or vomiting. No changes in her bowels. She does still make some urine and has had no change in this. She states she started to have some shortness of breath at the onset of her abdominal pain and this is progressed as well. She presented to dialysis today and they barely started dialysis prior to sending the patient to the emergency room. She denies any fevers or chills. All other systems reviewed and negative except documented per HPI. Voice recognition software was used to help create this chart Allergies and Home Medications Allergies Coded Allergies: Sulfa (Sulfonamide Antibiotics) (Verified Allergy, Unknown, 10/18/21) ampicillin (Verified Allergy, Unknown, 10/18/21) latex (Verified Allergy, Unknown, 10/18/21) topiramate (Verified Allergy, Unknown, 10/18/21) Patient Home Medication List Home Medication List Reviewed: Yes Amlodipine Besylate (Amlodipine Besylate) 10 Mg Tablet, 10 MG PO DAILY Prescribed by: GLENROY MONSIVAIS on 10/21/21 112 Clonidine HCl (Clonidine HCl) 0.3 Mg Tablet, 0.3 MG PO BID Prescribed by: GLENROY MONSIVAIS on 10/21/21 112 Hydralazine HCl (Hydralazine HCl) 50 Mg Tablet, 50 MG PO BID Prescribed by: GLENROY MONSIVAIS on 10/21/21 112 Metoprolol Succinate (Metoprolol Succinate) 100 Mg Tab.er.24h, 200 MG PO DAILY Prescribed by: GLENROY MONSIVAIS on 10/21/21 1121 Review of Systems Review of Systems Constitutional: see HPI Past Fbgzxvv-Illxtn-Yxfrvd Hx Patient Social History Tobacco Use?: No Use of E-Cig and/or Vaping dev: No Substance use?: No Alcohol Use?: No Past Medical History Hypertension Renal Failure Family Medical History No Pertinent Family Hx Physical Exam Vital Signs Vital Signs - First Documented 08/27/23 08/27/23 08:14 14:09 Temp 36.4 Pulse 105 Resp 24 B/P (MAP) 235/133 (167) Pulse Ox 95 O2 Delivery Nasal Cannula O2 Flow Rate 2.00 Capillary Refill : Less Than 3 Seconds Height/Weight/BMI Height: '" Weight: lbs. oz. kg; 36.03 BMI Method: General Appearance: WD/WN, moderate distress (Moderate respiratory distress with increased work of breathing) HEENT: normal ENT inspection, pharynx normal Neck: non-tender, full range of motion, supple, normal inspection Respiratory: chest non-tender, other (Increased work of breathing with use of accessory muscles. Oxygen saturation is normal on room air however she has significant increased work of breathing. She has crackles in bilateral lung zhang.) Cardiovascular: regular rate, rhythm, no murmur Gastrointestinal: normal bowel sounds, soft, tenderness (Diffuse tenderness palpation in all 4 quadrants, seems to be worse in the upper quadrants bilaterally. There is voluntary guarding without any rebound tenderness. No mass organomegaly. No skin changes.) Extremities: normal range of motion, other (Dialysis fistula in the left arm with palpable thrill) Neurologic/Psychiatric: alert, oriented x 3 Skin: normal color, warm/dry Progress/Results/Core Measures Results/Orders Lab Results Laboratory Tests Test 08/27/23 08:35 Range/Units White Blood Count 20.6 H 4.3-11.0 10^3/uL Red Blood Count 3.08 L 3.80-5.11 10^6/uL Hemoglobin 9.8 L 11.5-16.0 g/dL Hematocrit 30 L 35-52 % Mean Corpuscular Volume 97 80-99 fL Mean Corpuscular Hemoglobin 32 25-34 pg Mean Corpuscular Hemoglobin Concent 33 32-36 g/dL Red Cell Distribution Width 14.6 H 10.0-14.5 % Platelet Count 463 H 130-400 10^3/uL Mean Platelet Volume 9.1 9.0-12.2 fL Immature Granulocyte % (Auto) 1 % Neutrophils (%) (Auto) 89 H 42-75 % Lymphocytes (%) (Auto) 5 L 12-44 % Monocytes (%) (Auto) 4 0-12 % Eosinophils (%) (Auto) 0 0-10 % Basophils (%) (Auto) 1 0-10 % Neutrophils # (Auto) 18.3 H 1.8-7.8 10^3/uL Lymphocytes # (Auto) 1.0 1.0-4.0 10^3/uL Monocytes # (Auto) 0.9 0.0-1.0 10^3/uL Eosinophils # (Auto) 0.1 0.0-0.3 10^3/uL Basophils # (Auto) 0.1 0.0-0.1 10^3/uL Immature Granulocyte # (Auto) 0.1 0.0-0.1 10^3/uL Neutrophils % (Manual) 93 % Lymphocytes % (Manual) 5 % Monocytes % (Manual) 2 % Blood Morphology Comment NORMAL Sodium Level 139 135-145 MMOL/L Potassium Level 4.8 3.6-5.0 MMOL/L Chloride Level 94 L 98-107 MMOL/L Carbon Dioxide Level 22 21-32 MMOL/L Anion Gap 23 H 5-14 MMOL/L Blood Urea Nitrogen 63 H 7-18 MG/DL Creatinine 10.32 H 0.60-1.30 MG/DL Estimat Glomerular Filtration Rate 4 BUN/Creatinine Ratio 6 Glucose Level 220 H 70-105 MG/DL Calcium Level 10.4 H 8.5-10.1 MG/DL Corrected Calcium 10.4 H 8.5-10.1 MG/DL Total Bilirubin 0.4 0.1-1.0 MG/DL Aspartate Amino Transf (AST/SGOT) 15 5-34 U/L Alanine Aminotransferase (ALT/SGPT) 11 0-55 U/L Alkaline Phosphatase 137 H 40-136 U/L B-Type Natriuretic Peptide 28870.9 H <100.0 PG/ML Total Protein 8.2 6.4-8.2 GM/DL Albumin 4.0 3.2-4.5 GM/DL Lipase 149 H 8-78 U/L My Orders Orders - BASHIR,MARCELINO L DO Comprehensive Metabolic Panel (08/27/23 08:20) Ed Iv/Invasive Line Start (08/27/23 08:20) Lipase (08/27/23 08:20) Cbc And Automated Diff (08/27/23 08:20) Chest 1 View, Ap/Pa Only (08/27/23 08:20) Bnp Reanna (08/27/23 08:20) Ct Abdomen/Pelvis W (08/27/23 08:20) Fentanyl Injection (Fentanyl Injection (08/27/23 08:30) Iohexol Injection (Omnipaque 350 Mg/Ml 1 (08/27/23 08:30) Received Contrast (Hold Metformin- Contr (08/27/23 08:30) Ns (Ivpb) 100 Ml (Sodium Chloride 0.9% 1 (08/27/23 08:30) Manual Differential (08/27/23 08:35) Ondansetron Injection (Ondansetron Inj (08/27/23 09:35) Ondansetron Injection (Ondansetron Inj (08/27/23 09:45) Fentanyl Injection (Fentanyl Injection (08/27/23 12:15) Ns (Ivpb) 250 Ml (S... W/Nicardipine Inj (08/27/23 13:30) Medications Given in ED Current Medications Medications Dose Ordered Sig/Rafa Route Start Time Stop Time Status Last Admin Dose Admin Fentanyl Citrate 50 mcg ONCE ONCE IVP 08/27/23 08:30 08/27/23 08:31 DC 08/27/23 08:27 50 MCG Fentanyl Citrate 50 mcg ONCE ONCE IVP 08/27/23 12:15 08/27/23 12:16 DC 08/27/23 12:22 50 MCG Iohexol 100 ml ONCE ONCE IV 08/27/23 08:30 08/27/23 08:32 DC 08/27/23 09:56 100 ML Ondansetron HCl 8 mg ONCE ONCE IVP 08/27/23 09:45 08/27/23 09:46 DC 08/27/23 09:42 8 MG Sodium Chloride 100 ml ONCE ONCE IV 08/27/23 08:30 08/27/23 08:32 DC 08/27/23 09:56 80 ML Vital Signs/I&O 08/27/23 08/27/23 08/27/23 08/27/23 08:14 12:22 14:06 14:09 Temp 36.4 36.4 36.8 Pulse 105 86 Resp 24 20 B/P (MAP) 235/133 (167) 235/133 210/122 Pulse Ox 95 98 O2 Delivery Nasal Cannula O2 Flow Rate 2.00 Blood Pressure Mean: 167 Departure Communication (Admissions) Patient is hemodynamically stable outside of some severe hypertension, likely due to not having dialysis yet today. She is asymptomatic with this regard however she is having significant abdominal pain. For that reason I obtained a CT scan with IV contrast showing a lesion in her liver. Delayed images were obtained thinking this may be hemangioma however this did washout which leads to radiologist believe this may be a middle hepatic artery occlusion of unknown origin. The patient has diffuse abdominal pain, no focal pain in the right upper quadrant. Unknown significance of this lesion at this time. He has not needed dialysis based on labs and chest x-ray, blood pressure. I spoke with Dr. Daniel Cool at [facility] who accepts the patient in transfer at this time. She is put on a Cardene drip for her severe hypertension. Unfortunately we tried 3 different ground services who were unable to transport the patient so she is transported via air EMS. Impression Primary Impression: ESRD needing dialysis Additional Impressions: Abdominal pain Qualified Codes: R10.84 - Generalized abdominal pain Liver lesion Disposition: [facility] Condition: Stable Departure-Patient Inst. Referrals: NO,LOCAL PHYSICIAN (PCP/Family) Primary Care Physician MARCELINO CAMEJO DO Aug 27, 2023 08:25
[2023-08-27] MEDS ORDERED: NS 100 ML (IVPB) BAG IV ONE (08:30)
[2023-08-27] MEDS ORDERED: IOHEXOL 350 MG/ML 100 ML (OMNIPAQUE 350) VIAL IV ONE (08:30)
[2023-08-27] MEDS ORDERED: fentaNYL INJECTION 100 MCG/2 ML VIAL IVP ONE ×2 (08:30→12:15)
[2023-08-27] MEDS ORDERED: HOLD METFORMIN - RECEIVED CONTRAST 20 ML VIAL IV SCH (08:30)
[2023-08-27 08:46] LABS: BASOPHILS # (AUTO) 0.1 10^3/uL (0.0-0.1); BASOPHILS % (AUTO) 1 % (0-10); EOSINOPHILS # (AUTO) 0.1 10^3/uL (0.0-0.3); EOSINOPHILS % (AUTO) 0 % (0-10); HEMATOCRIT 30 % (35-52); HEMOGLOBIN 9.8 g/dL (11.5-16.0); LYMPHOCYTES % (AUTO) 5 % (12-44); MEAN CORPUSCULAR HEMOGLOBIN 32 pg (25-34); MEAN CORPUSCULAR HGB CONC 33 g/dL (32-36); MEAN CORPUSCULAR VOLUME 97 fL (80-99); MEAN PLATELET VOLUME 9.1 fL (9.0-12.2); MONOCYTES # (AUTO) 0.9 10^3/uL (0.0-1.0); MONOCYTES % (AUTO) 4 % (0-12); NEUTROPHILS # (AUTO) 18.3 10^3/uL (1.8-7.8); NEUTROPHILS % (AUTO) 89 % (42-75); PLATELET COUNT 463 10^3/uL (130-400); WHITE BLOOD COUNT 20.6 10^3/uL (4.3-11.0)
[2023-08-27 08:54] LABS: POTASSIUM 4.8 MMOL/L (3.6-5.0)
[2023-08-27 08:55] LABS: CALCIUM 10.4 MG/DL (8.5-10.1)
--- NOTE | 2023-08-27 08:56 | Diagnostic Imaging Report ---
INDICATION: Shortness of breath. COMPARISON: 10/18/2021. FINDINGS: There appears to be a relative paucity of interstitial markings within the upper aspect of the lungs, particularly within the right upper lobe. There is stable slight prominence of the basilar interstitial markings. Correlate for any known history of smoking or COPD. There is no new superimposed airspace consolidation or findings of an alveolar pneumonia. There is no evidence of an effusion. There is no pneumothorax. The heart size appears appropriate. Central pulmonary vascularity is unremarkable. There is no acute osseous abnormality. IMPRESSION: 1. Pulmonary interstitial changes that may reflect underlying COPD. Correlation as to any known smoking history appreciated. 2. No findings of superimposed pneumonia or edema. Dictated by: Dictated on workstation # [id number]
[2023-08-27 08:57] LABS: TOTAL PROTEIN 8.2 GM/DL (6.4-8.2)
[2023-08-27 08:58] LABS: BILIRUBIN,TOTAL 0.4 MG/DL (0.1-1.0)
[2023-08-27 09:00] LABS: CREATININE SERUM 10.32 MG/DL (0.60-1.30)
[2023-08-27 09:28] LABS: LYMPHOCYTES % (MANUAL) 5 %; MONOCYTES % (MANUAL) 2 %; NEUTROPHILS % (MANUAL) 93 %; RBC MORPH NORMAL
[2023-08-27] MEDS ORDERED: ONDANSETRON INJECTION 4 MG/2 ML (SDV) ONE (09:35)
[2023-08-27] MEDS ORDERED: ONDANSETRON INJECTION 4 MG/2 ML (SDV) IVP ONE (09:45)
--- NOTE | 2023-08-27 10:33 | Diagnostic Imaging Report ---
PROCEDURE: CT abdomen and pelvis with contrast. TECHNIQUE: Multiple contiguous axial images were obtained through the abdomen and pelvis after administration of intravenous contrast. Auto Exposure Controls were utilized during the CT exam to meet ALARA standards for radiation dose reduction. All CT scans use one or more of the following dose optimizing techniques: automated exposure control, MA and/or KvP adjustment based on patient size and exam type or iterative reconstruction. INDICATION: Diffuse abdominal pain There is no previous study available at this time for comparison. On the initial dynamic contrast enhanced CT portion of the study, note is made of wedge-shaped hyperdensity in the medial segment of the left hepatic lobe and surrounding the falciform ligament. This is in the distribution of middle hepatic vein territory with enhancement of what appear to be venous structures extending toward the inferior vena cava. Remainder of the liver is unremarkable. Gallbladder surgically absent. Extrahepatic biliary ductal dilatation is likely due to reservoir effect. There is no evidence of adrenal gland, pancreatic or splenic lesion. Kidneys are relatively small without evidence of hydronephrosis. Defect in the anterior abdominal wall near the umbilicus contains herniated fat. No bowel hernia is identified. Unopacified urinary bladder is unremarkable. There is mild aortoiliac atherosclerotic calcification. IMPRESSION: Wedge-shaped contrast stasis in the distribution of middle hepatic vein washes out on delayed images without additional abnormality identified on patient post cholecystectomy. 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 No additional acute abnormality is identified. Dictated by: Dictated on workstation # [id number]
[2023-08-27] MEDS ORDERED: niCARdipine INJECTION 50 MG in NS (IVPB) 250 ML 230 ML IV SCH (13:30)
[2023-08-27 14:09] VITALS: BP 210/122
== END 2023-08-27 14:09 | disposition short-term general hospital (02) ==
LOC: EDUNIT# 08:12 → ER 08:13
DX: I12.0 Hypertensive chronic kidney disease with stage 5 chronic kidney disease or end stage renal disease (principal); N18.6 End stage renal disease; K76.9 Liver disease, unspecified; Z91.040 Latex allergy status; Z99.2 Dependence on renal dialysis; Z79.899 Other long term (current) drug therapy
CPT/HCPCS: 36410; 36415; 71045; 74177; 76937; 80053; 83690; 83880; 85007; 85027